=== PATIENT | male | born 1945 | race Caucasian/White ===

== ENCOUNTER 2018-04-03 01:55 | Outpatient (CLI) | payer OTHER, SELFPAY ==
[2018-04-03 09:00] LABS: D-Dimer 302 ng/mlFEU (<500)
== END 2018-04-03 02:15 ==
PROVIDERS: PCP Emergency Medicine; Visit Provider Emergency Medicine
DX: I26.99 Other pulmonary embolism without acute cor pulmonale (principal)
CPT/HCPCS: 36415; 85379

== ENCOUNTER 2018-05-09 15:06 | Outpatient (CLI) | payer OTHER, SELFPAY ==
[2018-05-09 15:59] LABS: HCT 41.2 % (40.0-50.0); Mean Corp. HGB Concentration 36.4 g/dL (32.0-36.0); Mean Corpuscular Hemoglobin 32.4 pg (27.0-33.0); Mean Platelet Volume 9.7 fL (8.0-11.0); Platelet Count 213 x1000/uL (130-400); RBC 4.63 m/cumm (4.50-6.00); RBC Distribution Width 11.5 % (11.8-14.1); White Blood Cell Count 7.31 k/cumm (4.4-10.8)
[2018-05-09 16:42] LABS: ALT 22 U/L (12-78); AST 26 U/L (15-37); Alkaline Phosphatase 85 U/L (46-116); Anion Gap 9.6 mmol/L (3-11); BUN 26 mg/dL (7-18); Bilirubin, Total 0.7 mg/dL (0.2-1.0); CO2 27.4 mmol/L (21.0-32.0); CREATININE 1.36 mg/dL (0.70-1.30); Chloride 100 mmol/L (98-107); Estimated GFR 51.81 (mL/min/1.73m2); Glucose 94 mg/dL (70-100); Lipase 224 U/L (73-393); Potassium 4.7 mmol/L (3.5-5.1); Sodium 137 mmol/L (136-145); Total Protein 7.1 g/dL (6.4-8.2)
== END 2018-05-09 15:26 ==
PROVIDERS: PCP Emergency Medicine; Visit Provider Family Medicine
DX: R10.9 Unspecified abdominal pain (principal); G89.29 Other chronic pain
CPT/HCPCS: 36415; 80053; 83690; 85027

== ENCOUNTER 2018-05-13 00:38 | Outpatient (CLI) | payer OTHER, SELFPAY ==
--- NOTE | 2018-05-13 10:00 | DI.US_ITS ---
SYMPTOM/DIAGNOSIS: LUQ PAIN, EPIGASTRIC PAIN R10.13, R10.9, G89.29 ABDOMEN ULTRASOUND: The liver is normal in size and echogenicity. No focal liver lesions or biliary dilatation is seen. The gallbladder is unremarkable, without evidence of stones or wall thickening. Bilateral renal cysts are noted. There is no evidence of hydronephrosis. There are questionable echogenic foci in the kidneys which could represent artifacts. The patient had a CT 03 August 2017 which did not reveal urinary tract calculi. The aorta is normal in diameter. IMPRESSION: Small renal cysts. No acute abnormality.
== END 2018-05-13 00:58 ==
PROVIDERS: PCP Emergency Medicine; Visit Provider Emergency Medicine
DX: R10.13 Epigastric pain (principal); R10.12 Left upper quadrant pain; N28.1 Cyst of kidney, acquired; G89.29 Other chronic pain
CPT/HCPCS: 76700

== ENCOUNTER 2019-03-11 00:52 | Outpatient (CLI) | payer OTHER, SELFPAY ==
--- NOTE | 2019-03-11 13:09 | DI.US_ITS ---
EXAM: US SCROTUM CLINICAL HISTORY: epydidimal pain, epididymal thickening, testicular pain, N50.819, N50.89 TECHNIQUE: Ultrasound performed using standard protocol. COMPARISON: No exams were available for comparison FINDINGS: Testicles are normal in size and echogenicity and show normal blood flow. There is no evidence of ma ss or torsion. There is a spermatocele adjacent to the left epididymal head measuring 2.7 x 1.3 x 1. 6 cm. There are small epididymal head cysts. There are minimal bilateral hydroceles. No varicocele s are seen. IMPRESSION: 2.7 centimeter spermatocele adjacent to the head of the left epididymis.
[2019-03-12 10:16] LABS: PSA, Screening 0.9 ng/mL (0.0-6.5)
== END 2019-03-11 01:12 ==
PROVIDERS: PCP Emergency Medicine; Visit Provider Nurse Practitioner
DX: N50.819 Testicular pain, unspecified (principal); N50.89 Other specified disorders of the male genital organs; N43.41 Spermatocele of epididymis, single; Z12.5 Encounter for screening for malignant neoplasm of prostate
CPT/HCPCS: 36415; 84153; 76870

== ENCOUNTER → 2019-11-07 10:46 | Outpatient (BNVA) | payer OTHER, SELFPAY | PROVIDERS: PCP Emergency Medicine; Referring Provider Emergency Medicine; Visit Provider Student in an Organized Health Care Education/Training Program | DX: M23.92 Unspecified internal derangement of left knee (principal) | CPT/HCPCS: 99214 ==

== ENCOUNTER → 2020-01-26 09:10 | Outpatient (BNVA) | payer OTHER, SELFPAY | PROVIDERS: PCP Emergency Medicine; Referring Provider Emergency Medicine; Visit Provider Student in an Organized Health Care Education/Training Program | DX: M23.92 Unspecified internal derangement of left knee (principal); Z98.890 Other specified postprocedural states | CPT/HCPCS: 99213 ==

== ENCOUNTER → 2020-10-07 08:26 | Outpatient (BNVA) | payer OTHER, SELFPAY | PROVIDERS: Visit Provider Student in an Organized Health Care Education/Training Program | DX: M23.92 Unspecified internal derangement of left knee (principal) | CPT/HCPCS: 99213 ==

== ENCOUNTER 2021-02-22 00:53 | Outpatient (CLI) | payer MEDICARE, SELFPAY ==
--- NOTE | 2021-02-22 06:30 | DI.MRI_ITS ---
Exam(s) MR LOWER JOINT LT WO EXAM: MR LOWER JOINT LT WO CLINICAL HISTORY: PAIN,INTERNAL DERANGEMENT LT KNEE, M23.92. TECHNIQUE: Multiplanar multisequence MRI was performed. COMPARISON: CR XR KNEE 4 VIEW LEFT from 04/17/2019 CR XR KNEE 4 VIEW LEFT from 04/17/2019 FINDINGS: BONES: There is no fracture or contusion pattern. Nonspecific patchy areas of hyperintense signal on the T2 weighted images corresponding to hypointense areas on the T1 weighted images. JOINTS: Articular cartilage is unremarkable. There is a small amount of fluid in the joint space. TENDONS: Extensor mechanism: Unremarkable. Medial retinaculum: Unremarkable. Lateral retinaculum: Unremarkable. Popliteus: Unremarkable. MUSCLES: Unremarkable. MENISCI: There is hyperintense signal in the posterior horn of the medial meniscus consistent with a tear. There is a tear of the body and posterior horn of the lateral meniscus. There is an associate d 1.2 x 0.8 cm parameniscal cyst. SOFT TISSUES: Unremarkable. LIGAMENTS: Anterior Cruciate: Unremarkable. Posterior Cruciate: Unremarkable. Medial Collateral:Unremarkable. Lateral Collateral: There is a strain of the lateral collateral ligament complex. OTHER: IMPRESSION: 1. Tear of the posterior horn of the medial meniscus. 2. Tear of the body and posterior horn of the lateral meniscus with an associated parameniscal cyst. 3. Strain of the lateral collateral ligament complex. 4. Mottled appearance of the marrow in the distal femur and proximal tibia and fibula. Differential considerations include both benign and malignant causes including neoplasm and metastatic disease. T his may also occur in smokers. Please correlate clinically. DATA REPOSITORY:
== END 2021-02-22 01:13 ==
PROVIDERS: Visit Provider Student in an Organized Health Care Education/Training Program
DX: M25.562 Pain in left knee (principal); M23.8X2 Other internal derangements of left knee; S83.242A Other tear of medial meniscus, current injury, left knee, initial encounter; S83.282A Other tear of lateral meniscus, current injury, left knee, initial encounter; S83.422A Sprain of lateral collateral ligament of left knee, initial encounter
CPT/HCPCS: 73721

== ENCOUNTER 2021-09-26 04:16 | Outpatient (CLI) | payer MEDICARE, SELFPAY ==
[2021-09-26 15:17] LABS: Calculated LDL 104 mg/dL (<100); Cholesterol 169 mg/dL (<200); HDL Cholesterol 43 mg/dL (40-60); Triglyceride 114 mg/dL (<150)
[2021-09-26 17:24] LABS: CRP, High Sensitivity 0.62 mg/L (See Note)
== END 2021-09-26 04:17 | disposition home or self-care (01) ==
LOC: LBO 04:16
PROVIDERS: PCP Family Medicine; Visit Provider Family Medicine
DX: R74.8 Abnormal levels of other serum enzymes (principal)
CPT/HCPCS: 36415; 80061; 86141

== ENCOUNTER 2021-11-14 21:28 | Emergency (ER) | payer MEDICARE, SELFPAY ==
[2021-11-14 21:33] VITALS: BP 112/59; PULSE 67; RESP 16; TEMP 36.8; O2SAT 97
--- NOTE | 2021-11-14 21:45 | DI.RAD_ITS ---
Exam(s) XR KNEE LT 3V AP,LAT,YESICA EXAM: XR KNEE LT 3V AP,LAT,YESICA CLINICAL HISTORY: puncture wound, fall on patella. TECHNIQUE: 2D digital imaging was performed of the left knee. Three images were obtained. AP, late ral and PA tunnel views were obtained. COMPARISON: No prior for comparison. FINDINGS: BONES: No acute fracture is present. No bony destructive lesion is seen. JOINTS: The knee is normally aligned. No joint effusion is seen. SOFT TISSUE: Soft tissue swelling is seen anterior to the patella. No radiopaque foreign bodies or g as is seen. IMPRESSION: 1. No radiopaque foreign body. 2. Soft tissue swelling anterior to the patella. DATA REPOSITORY: RADIATION DOSE DELIVERED:
--- NOTE | 2021-11-14 23:25 | DI.VRAD_ITS ---
PROCEDURE INFORMATION: Exam: XR Left Knee Exam date and time: 11/14/2021 9:55 PM Age: 76 years old Clinical indication: Other: Puncture wound, fall on patella TECHNIQUE: Imaging protocol: Radiologic exam of the Left knee. Views: 3 views. COMPARISON: MR LOWER JOINT LT WO 02/22/2021 7:50 AM FINDINGS: Bones/joints: No fracture or dislocation. Probable osteopenia. Soft tissues: Soft tissue swelling anterior to the inferior patella. No soft tissue gas or radiopaque foreign body. IMPRESSION: 1. No acute fracture. 2. Probable osteopenia. 3. Anterior knee soft tissue swelling/hematoma. Dictated and Authenticated by: Stephen Rausch MD. Ordering:FREEDOM Martinez MD
--- NOTE | 2021-11-14 23:40 | W.ED.GENAD ---
Discharge Plan Disposition Patient Disposition: HOME Condition: Stable Discharge Details Clinical Impression: Puncture wound of knee, left Primary Care Provider: Aiyana Joseph ED Provider: Michelle Fritz Home Meds and New Rx's Prescriptions: New cephalexin 500 mg tablet 500 mg PO Q6H Qty: 28 0RF Discharge Instructions Instructions: Puncture Wound (ED) Additional Instructions: Keep wound clean and dry Change dressing daily Refrain from bending knee is much as possible and elevate your knee is much as you are able to Take antibiotic as prescribed Yogurt daily while on antibiotic PCP recheck in 48 to 72 hours Referrals: Aiyana Joseph MD [Primary Care Provider] - Discharge Data Discharge Date/Time-TO BE ENTERED AT DEPARTURE: 11/15/21 00:16 Medical Decision Making X-ray does not show evidence of acute. Pressure dressing with Lane wrap was applied after copious irrigation Antibiotics recommended, however patient has declined and would like to observe it He is aware of the high risk of infection Precautions discussed and patient expressed understanding Medical Records Medical records reviewed: Yes I reviewed the patient's medical records. Lab Data Lab results reviewed: Yes I reviewed the patient's lab results. HPI General Date/Time Provider Initiated Documentation: 11/14/21 21:40. HPI Narrative: 76-year-old gentleman presents status post fall onto a rock. He landed onto the left knee and had a puncture wound. He denies any additional injuries. His tetanus is up-to-date reportedly. He has been able to walk without discomfort. Related Data Home Medications Medication Instructions Recorded Confirmed cephalexin 500 mg tablet 500 mg PO Q6H #28 tabs 11/14/21 Previous Rx's Medication Instructions Recorded cephalexin 500 mg tablet 500 mg PO Q6H #28 tabs 11/14/21 Allergies Allergy/AdvReac Type Severity Reaction Status Date / Time lidocaine AdvReac skin parker Unverified 11/14/21 21:37 with the lidocaine jel General Stated Complaint: Orthopedic WILLIE: 4 Review of Systems All systems reviewed & are unremarkable except as noted in HPI and below PFSH All Active Problems (Updated 11/14/21 @ 23:31 by MIS Ladd) Puncture wound of knee, left (Acute) Peyronie's disease (Chronic) Post-nasal drip (Chronic 11/09/16) 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) Cholelithiasis without obstruction Hx pulmonary embolism remote; post travel Low back pain scoliosis Pyloric ulcer associated with Helicobacter pylori (02/14/11) Varicose veins of lower extremity Surgical History (Updated 07/01/21 @ 08:49 by Aiyana Joseph MD) H/O left wrist surgery H/O rectal sphincterotomy History of esophagogastroduodenoscopy History of rectal sphincterotomy Status post arthroscopy of shoulder Status post rotator cuff repair Status post tonsillectomy and adenoidectomy Family History Mother Ovarian cancer Depression Heart disease Hypertension Stroke Father Heart disease Stroke Sister No problems noted. Maternal Grandfather Heart disease Social History (Updated 07/01/21 @ 08:43 by Aiyana Joseph MD) Smoking/Tobacco Use Status: Never Second Hand Exposure: No Smoking risk assessment performed?: Yes Alcohol Intake: never Drug use: Never Substance use type: does not use Caregiver/Support person: No Household members: spouse Housing: house Number of Children: 1 number of grandchildren: 2 Communication Needs: None Education Level: college Details: BS nursing current occupation: retired home health nurse Pets and animals: No Sexually active: No What is your relationship status?: How often do you talk on the phone with friends or family?: once per week How often do you get together with friends or relatives?: once per week How often do you attend tenriism or pentecostalism services?: decline to answer Do you belong to any clubs or organized social groups?: no Panel score (0-1 are the most socially isolated patients): 1 Duration: 60-90 minutes/day Frequency: daily Bebe/Hindu: No preference Special bebe needs: No Seatbelt use: always Helmet use: No Drive intox 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 Exam Const General: cooperative, comfortable and no acute distress HENMT Head: normal to inspection Eyes Sclera: sclerae normal Resp Effort & Inspection: normal respiratory effort Cardio Rate: regular rate Skin Trauma: laceration Neuro General: patient alert and patient oriented x3 Extrem Other: Left knee with puncture noted, approximately 5 mm overlying prepatellar bursa, traumatic bursitis Range of motion intact, no tenderness to left hip or left ankle, neurovascularly intact distal extremity Course Vital Signs Vital signs: Vital Signs Temperature 36.8 C 11/14/21 21:33 Pulse 67 11/14/21 21:33 Respiratory Rate 16 11/14/21 21:33 Blood Pressure 112/59 L 11/14/21 21:33 Pulse Oximetry 97 11/14/21 21:33 Temperature 36.8 C 11/14/21 21:33 Temperature Source Temporal Artery Scan 11/14/21 21:33 Pulse 67 11/14/21 21:33 Respiratory Rate 16 11/14/21 21:33 Respiratory Effort 11/14/21 21:33 Blood Pressure 112/59 L 11/14/21 21:33 Blood Pressure Position Sitting 11/14/21 21:33 Pulse Oximetry 97 11/14/21 21:33 Oxygen Delivery Method Room Air 11/14/21 21:33 Oxygen Flow Rate 0 11/14/21 21:33 Pain Level 4 11/14/21 21:33
== END 2021-11-15 00:16 | disposition home or self-care (01) ==
PROVIDERS: Emergency Provider Physician Assistant; PCP Family Medicine
DX: S81.032A Puncture wound without foreign body, left knee, initial encounter (principal); W18.39XA Other fall on same level, initial encounter
CPT/HCPCS: 73562; 99283

== ENCOUNTER 2023-05-08 12:35 | Outpatient (CLI) | payer MEDICARE, SELFPAY ==
[2023-05-08 13:28] LABS: Calculated LDL 107 mg/dL (<100); Cholesterol 200 mg/dL (<200); HDL Cholesterol 49 mg/dL (40-60); Triglyceride 223 mg/dL (<150)
== END 2023-05-08 12:36 | disposition home or self-care (01) ==
LOC: LBO 12:36
PROVIDERS: PCP Nurse Practitioner Family; Visit Provider Nurse Practitioner Family
DX: Z13.6 Encounter for screening for cardiovascular disorders (principal); Z12.5 Encounter for screening for malignant neoplasm of prostate
CPT/HCPCS: 36415; 80061; 84153

== ENCOUNTER → 2023-08-27 13:50 | Outpatient (CLI) | payer MEDICARE, SELFPAY ==
--- NOTE | 2023-08-27 11:45 | DI.CT_ITS ---
Exam(s) CT LOWER EXTREMITY LT WO EXAM: CT LOWER EXTREMITY LT WO CLINICAL HISTORY: S82.002A FX left Patella,presurgical eval of intra-articular, comminuted pa. TECHNIQUE: Imaging Protocol: Axial computed tomography images with coronal and sagittal reformatted images were created and reviewed. COMPARISON: CR,XR XR KNEE LT 3V AP,LAT,YESICA from 11/14/2021 FINDINGS: Bones: There is a comminuted fracture of the patella. There is distraction of the patella with 2 cm separation. There is a joint effusion. No cellulitic or osteomyelitic changes are identified. The re is no evidence of joint space narrowing or cystic degeneration seen. No lytic or sclerotic lesions are identified. Soft Tissues: There is edema seen in the soft tissues particularly anteriorly. There is a hematoma s een in the at the fracture site. Incidental note is made of a small popliteal cyst. IMPRESSION: Comminuted distracted patellar fracture with joint effusion and soft tissue hematoma. RADIATION DOSE DELIVERED: 252.31mGy.cm Total DLP 252.31mGy.cm Total DLP DATA REPOSITORY: All CT scans at this facility are submitted to the National Radiology Data Registry (NRDR) Dose Index Registry (DIR) with the [employer] (ACR). RADIATION OPTIMIZATION: All CT scans at this facility use at least one of these dose optimization te chniques: automated exposure control; mA and/or kV adjustment per patient size (includes targeted exa ms where dose is matched to clinical indication); or iterative reconstruction.
== END ==
PROVIDERS: PCP Nurse Practitioner Family; Visit Provider Student in an Organized Health Care Education/Training Program
DX: S82.042A Displaced comminuted fracture of left patella, initial encounter for closed fracture (principal); X58.XXXA Exposure to other specified factors, initial encounter
CPT/HCPCS: 73700

== ENCOUNTER 2023-08-29 10:13 | Day surgery (SDC) | payer MEDICARE, SELFPAY ==
[2023-08-29] VITALS (13 sets, daily range): BP systolic 99–138; BP diastolic 55–77; PULSE 56–73; RESP 12–20; TEMP 35–36.6; O2SAT 98–100
--- NOTE | 2023-08-29 10:05 | PDOC.DSDIS_ITS ---
Date of service: 08/29/23 Time of Service: 10:05 Discharge Plan Disposition Patient Disposition: Home Condition: Good Discharge Details Reason For Visit: ORIF L Patella Attending Provider: Jj Mccallum Primary Care Provider: Juan Carlos Ayon Home Meds and New Rx's Prescriptions: New acetaminophen 500 mg tablet 1,000 mg PO TID Qty: 90 3RF aspirin 81 mg tablet,delayed release (DR/EC) 81 mg PO BID Qty: 30 0RF ibuprofen 600 mg tablet 600 mg PO TID PRNQty: 90 3RF oxycodone 5 mg tablet 5 mg PO Q8H MDD 15mg PRN (Reason: pain) Qty: 10 0RF Continued mecobalamin (vitamin B12) 5,000 mcg tablet,chewable 5,000 mcg PO DAILY Qty: 90 3RF Discontinued aspirin 325 mg tablet 325 mg PO Q4H Rx Instructions: while awake Discharge Instructions Additional Instructions: Knee Manipulation Discharge Instructions Activity: You may bear weight as tolerated using crutches only with the brace on and the knee in full extension. You should apply ice to help with swelling and elevate when possible. Dressings: You should leave the dressing in place until your next visit in two weeks. Cover the dressing to keep it dry. You may shower after 72 hours although it would be recommend to sponge bath for the time being. You may relax or unstrap your knee immobilizer when the leg is supported. However, it should be fully secured before moving. You may apply the CryoCuff ice machine when resting but this should be removed and the immobilizer tightened prior to walking or moving. Do NOT try to move the knee too much until your next appointment. Medications: - You have been givin a stronger pain medicine oxycodone for severe pain to take as needed. - Recommend to take up to 1000mg of Acetaminophen (Tylenol) and 600mg of Ibuprofen (Advil) every 8 hours as needed. These larger strength tablets were called in but you also may use [id number]. Follow-up: 10 days Stand Alone Forms: Anesthesia Discharge Inst[facility] Herb Murray ([facility]) Referrals: Jj Mccallum MD [ [facility] STAFF PHYSICIAN] - 09/13/23 8:15 am Equipment/Supplies: Partial Weight Bearing Crutches Activity:: Elevate Remove Dressings/Wound Care:: Do Not Remove Shower/Bathe:: Cover Diet:: As Tolerated Discharge Orders Discharge Orders: Discharge Order (Routine); Ordered 08/29/23 Ordered By: William Hemphill DS: Diagnosis Discharge Diagnosis (1) Left patella fracture: Status: Acute
[2023-08-29 10:50] LABS: Source Nasal/Nares
[2023-08-29] MEDS: Acetaminophen 500 MG TAB 1000 MG PO (11:02)
[2023-08-29] MEDS: Celecoxib 200 MG CAP 400 MG PO (11:02)
[2023-08-29] MEDS: Lactated Ringers 1,000 ML 80 ML IV (11:17)
[2023-08-29 11:29] LABS: COVID-19 PCR Negative (Negative)
--- NOTE | 2023-08-29 11:32 | W.ANESPRE ---
General Info Date of Service Date Performed: 08/29/23 Height: 6 ft Weight: 67.1 kg Body Mass Index (BMI): 20.0 Surgical Procedure: Operation Date: 08/29/23 14:40 Proposed Procedure Side Surgeon p Knee ORIF Patella Left Jj Mccallum MD Meds Allergies and Home Medications Allergies Allergy/AdvReac Type Severity Reaction Status Date / Time lidocaine AdvReac skin parker Verified 08/29/23 11:18 with the lidocaine jel Home Medication Medication Instructions Recorded mecobalamin (vitamin B12) 5,000 5,000 mcg PO DAILY #90 tabs 04/18/23 mcg chewable tablet acetaminophen 500 mg tablet 1,000 mg (2 x 500 mg) PO TID #90 08/29/23 tabs aspirin 81 mg tablet,delayed 81 mg PO BID #30 tabs 08/29/23 release ibuprofen 600 mg tablet 600 mg PO TID PRN #90 tabs 08/29/23 oxycodone 5 mg tablet 5 mg PO Q8H PRN pain #10 tabs 08/29/23 Current Visit Medications: Current Medications Generic Name Dose Route Start Last Admin Trade Name Freq PRN Reason Stop Dose Admin Acetaminophen 1,000 mg 08/29/23 06:00 08/29/23 11:02 Acetaminophen 500 Mg Tab PO 09/27/23 23:59 1,000 mg PREOP KAR Administration Acetaminophen 650 mg 08/29/23 10:05 Acetaminophen 325 Mg Tab PO 09/28/23 10:04 Q4H PRN PRN Celecoxib 400 mg 08/29/23 06:00 08/29/23 11:02 Celecoxib 200 Mg Cap PO 09/27/23 23:59 400 mg PREOP KAR Administration Ringer's Solution 1,000 mls @ 80 mls/hr 08/29/23 06:00 08/29/23 11:17 IV 09/27/23 23:59 80 mls/hr INFUSION KAR Administration Cefazolin Sodium/Dextrose 2 gm in 50 mls @ 100 mls/hr 08/29/23 06:00 Ancef Duplex IVPB 09/27/23 23:59 PREOP KAR Tranexamic Acid/Sodium Chloride 1,000 mg in 100 mls @ 600 mls/hr 08/29/23 06:00 IVPB 09/27/23 23:59 PREOP KAR IV Miscellaneous Supplies 1 each 08/29/23 06:00 Iv Access IV 09/27/23 23:59 DIRECTED KAR Oxycodone HCl 0 mg 08/29/23 10:05 Oxycodone 5 Mg Tab PO 09/28/23 10:04 Q3H PRN PRN Pain Sodium Chloride 0 ml 08/29/23 06:00 Normal Saline Flush 10 Ml Syr IV 09/27/23 23:59 PRN PRN Sodium Chloride 0 ml 08/29/23 06:00 Normal Saline 10 Ml Vial IJ 09/27/23 23:59 DIRECTED PRN Sterile Water 0 ml 08/29/23 06:00 Water,Injection,Sterile 10 Ml Vial IJ 09/27/23 23:59 DIRECTED PRN PFSH Active Problems Active Problems: Problem Status Onset Code Left patella fracture S82.002A Skin lesion L98.9 Peyronie's disease N48.6 Post-nasal drip 11/09/16 R09.82 Disorder of vitamin B12 02/14/11 E53.8 Chronic abdominal pain R10.9, G89.29 Anxiety F41.9 Actinic keratosis L57.0 Medical History Medical History Hx pulmonary embolism remote; post travel 10years + Varicose veins of lower extremity Low back pain scoliosis Pyloric ulcer associated with Helicobacter pylori (02/14/11) Cholelithiasis without obstruction 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) Surgical History Surgical History H/O left wrist surgery H/O rectal sphincterotomy History of esophagogastroduodenoscopy History of rectal sphincterotomy Status post arthroscopy of shoulder Status post rotator cuff repair Status post tonsillectomy and adenoidectomy Tobacco Smoking/Tobacco Use Status: Never Passive smoking exposure: Yes Second hand exposure: Yes Alcohol Alcohol Intake: never Substance Use Substance use: Never Substance use type: does not use Vital Signs and Lab Results Vital Signs Most Recent Vital Signs in EMR: Most Recent Vital Signs Temp Pulse Resp BP Pulse Ox 36.6 C 73 18 131/72 100 08/29/23 10:41 08/29/23 10:41 08/29/23 10:41 08/29/23 10:41 08/29/23 10:41 Lab Results Blood Type / Crossmatch: No Data to Display Complete Blood Count: No Data to Display Complete Metabolic Panel: No Data to Display Liver Function Panel: No Data to Display Coagulation Panel: No Data to Display Cardiac Panel: No Data to Display Arterial Blood Gas: No Data to Display Venous Blood Gas: No Data to Display Pancreas Panel: No Data to Display Thyroid Panel: No Data to Display Infectious Disease: Coronavirus (COVID-19)(PCR) Negative (Negative) 08/29/23 10:47 Coronavirus 2019 Source Nasal/Nares 08/29/23 10:47 Blood Cultures: No Data to Display Toxicology Panel: No Data to Display Anesthesia Assessment and Plan Anesthesia History Personal History: No History of Anesthesia Complications Family History: No Family History of Anesthesia Complications Exercise Tolerance Exercise Tolerance: Metabolic Equivalents>4 Cardiac & Pulmonary Exam Cardiac Exam: Normal S1/S2 Heart Sounds Pulmonary Exam: Clear Bilateral Breath Sounds Implantable Cardiac Device Does patient have a Pacemaker or an ICD?: No Airway Exam Known Difficult Airway: No Mallampati Class: 3 Mouth Opening: Normal (> 3cm) Thyromental Distance: Less than 3 cm Neck Range of Motion: Full ROM Neck Circumference: Normal Teeth Condition: Normal Dentition ASA Classification ASA Score: ASA 2 Emergency Case?: No NPO Status NPO Status: NPO Clears >2 hours, Solids >8 hours Anesthesia Plan Resuscitation Status: Full Code Anesthesia Technique: Spinal Anesthesia Airway Planned: Natural Airway Pain Management: Surgeon and patient request nerve block (rescue) Monitors Used: Standard Monitors Preoperative Comments:: 78 yo male for Patella ORIF. Sig PMHx: PE/DVT (not on anticoagulation, not recently), anxiety, never smoker. Discussed risk/benifits of spinal vs general. Would like primary spinal with light propofol sedation. We discussed that conversion to GA may be needed if the surgery takes longer than expected. Rescue nerve block was also discussed. He had a recent stuffy nose, however he feels that his symptoms resolved and in my time speaking with them he did not demonstrate any signs or URI.
--- NOTE | 2023-08-29 12:20 | HPE_ITS ---
Assessment and Plan Assessment and plan (1) Left patella fracture: Status: Acute Assessment and plan: Chris is a 78-year-old active male who suffered a comminuted displaced patella fracture in the left side. Given the displaced nature of the fracture recommended operative fixation. It is imperative that we get the bone back together to heal to restore his extensor mechanism. I discussed the methodical details of this case, particularly surrounding the amount of comminution present. I discussed the risk of the procedure to include bleeding, infection, pain, stiffness, damage to nerves and vessels, damage to muscle and tendons, malunion, nonunion, hardware prominence, hardware failure, need for repeat procedures, worsening arthritis, blood clot. Despite these risk, he elects to proceed. History of Present Illness Narrative: Chris is a 78-year-old active male who had seen previously for his left knee who was hiking in [facility] when he fell directly on the left knee. He was diagnosed with a comminuted and displaced patella fracture. He is placed into a long-leg splint. He contacted me from [facility] with pictures of the fracture. This prompted the urgent evaluation with CT scan and surgery today. He has been able to ambulate with the splint in full extension. He has been using the crutches. He denies any defect in the skin. He denies any numbness or tingling. He does report not feeling well having a low-grade cough since he is returned from traveling. He had no other changes to his medical history. 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 Maternal Grandfather Heart disease Social History Smoking/Tobacco Use Status: Never Second Hand Exposure: Yes Smoking risk assessment performed?: Yes Alcohol Intake: never Drug use: Never Substance use type: does not use Adopted: No Caregiver/Support person: No Foster care: No Household members: spouse Housing: house Number of Children: 1 number of grandchildren: 2 Communication Needs: None Education Level: college Details: BS nursing Do you need help understanding health information?: Never current occupation: retired home health nurse Pets and animals: No Sexually active: No Do you think of yourself as: straight/heterosexual Current gender identity: male What is your relationship status?: How often do you talk on the phone with friends or family?: decline to answer How often do you get together with friends or relatives?: decline to answer How often do you attend roman catholic or christian services?: decline to answer Do you belong to any clubs or organized social groups?: no Panel score (0-1 are the most socially isolated patients): 1 What type of physical activity do you participate in: walking and other Details: rec fit Duration: > 90 minutes/day Frequency: daily Bebe/Yarsanism: None Special bebe needs: No Agree to transfusion: Yes Seatbelt use: always Helmet use: Yes Helmet use: always Drive intox or ride w/intox river driver: No Working smoke detector in home: Yes Carbon monox detector in home: Yes Firearms in home: No Do you feel safe at home: Yes Do you feel safe in your relationship?: Yes Victim of physical abuse: No Victim of emotional abuse: No Victim of sexual abuse: No Would you like helpful sources: No Meds Allergies and Home Medications Allergies Allergy/AdvReac Type Severity Reaction Status Date / Time lidocaine AdvReac skin parker Verified 08/29/23 11:18 with the lidocaine jel Home Medications Medication Instructions Recorded Confirmed Type mecobalamin (vitamin B12) 5,000 5,000 mcg PO DAILY #90 tabs 04/18/23 08/29/23 Rx mcg chewable tablet acetaminophen 500 mg tablet 1,000 mg (2 x 500 mg) PO TID #90 08/29/23 Rx tabs aspirin 81 mg tablet,delayed 81 mg PO BID #30 tabs 08/29/23 Rx release ibuprofen 600 mg tablet 600 mg PO TID PRN #90 tabs 08/29/23 Rx oxycodone 5 mg tablet 5 mg PO Q8H PRN pain #10 tabs 08/29/23 Rx Exam Const General: cooperative, healthy appearing, comfortable and no acute distress Nutritional Appearance: average body habitus Resp Effort & Inspection: normal respiratory effort Auscultation: clear to auscultation bilaterally Cardio Rate: regular rate Rhythm: regular rhythm Extrem Other: Evaluation of the left leg shows it is placed into a long-leg splint. He has active ankle dorsiflexion and plantarflexion as well as great toe extension and flexion. Sensation intact light touch over the deep and superficial peroneal nerve and tibial nerve. Results Imaging Imaging Studies: X-ray of the left patella was reviewed from the online portal system. These were from [facility]. This shows a displaced and comminuted fracture of the left patella. CT scan of the left patella shows multiple fragments of the patella including articular surface with notable comminution and displacement the fracture fragments. No apparent fracture of the femur or the tibia Labs Labs: Laboratory Results - last 24 hr 08/29/23 10:47 COVID-19 Source Nasal/Nares SARS-CoV-2 (PCR) Negative Last Vital Signs Temp 36.6 C 08/29/23 10:41 Pulse 73 08/29/23 10:41 Resp 18 08/29/23 10:41 BP 131/72 08/29/23 10:41 Pulse Ox 100 08/29/23 10:41
--- NOTE | 2023-08-29 12:45 | DI.RAD_ITS ---
Exam(s) XR KNEE LT 1V EXAM: XR KNEE LT 1V CLINICAL HISTORY: LEFT PATELLA FRACTURE. TECHNIQUE: 2D digital imaging was performed. COMPARISON: No exams were available for comparison FINDINGS: Fluoroscopy provided during ORIF of left patellar fracture. See procedure report for details. Total fluoroscopy time 34 seconds IMPRESSION: Radiation exposure index/cumulative dose: mary carmen Quesada= 2.6296 mGy DATA REPOSITORY: RADIATION DOSE DELIVERED:
[2023-08-29] MEDS: ceFAZolin 2 GM/50 ML BAG IVPB (14:20)
[2023-08-29] MEDS: TRANEXAMIC ACID/SOD. CHL. 1,000 MG/100 ML BAG 600 MG IVPB (14:29)
--- NOTE | 2023-08-29 17:40 | ROE_ITS ---
Date of service: 08/29/23 Time of Service: 14:30 Operative Note Operative Note DATE OF PROCEDURE: 08/29/23 PRE-OP DIAGNOSIS: Comminuted Patella Fracture - LEFT POST-OP DIAGNOSIS: same PROCEDURE: Open Reduction and Internal Fixation of Left Patella Fracture SURGEON: Jj Mccallum DYNAM[employer] AX TECHNICAL ARCHITECT: William Hemphill ANESTHESIA TYPE: General LMA/ETT and Spinal Refer to Anesthesia Record ESTIMATED BLOOD LOSS: 50 PATHOLOGY: none sent TOURNIQUET TIME: 0 COMPLICATIONS: None Patient was transported to: PACU Patient's condition: stable Implants: Synthes 2.7mm VA Patella Plate - Large Indications: Chris is a 78 year old male who was hiking in [facility] when he fell onto a flexed left knee. He is unable to ambulate properly a comminuted and displaced patella fracture. He contacted me from [facility] where I arranged further imaging on his arrival. However, the x-rays were clear he had displaced talus fracture. This was confirmed with CT scan which shows significant comminution. Given this fracture, I recommended operative fixation. I reviewed the risks of the procedure to include bleeding, infection, pain, stiffness, patellar instability, malunion, nonunion, fracture, clot, worsening arthritis. Despite these risks, Chris elected to proceed. Findings: There was a highly comminuted fracture of the patella. Individual fracture fragments were secured with K wires and 2.4 millimeter screws. A dorsal variable angle 2.7 mm plate was applied to obtain more complete fixation. This was also backed up by suture techniques around the patella. Procedure Description: Chris was greeted in the preoperative holding area where the correct side was identified and marked. The consent was reviewed with the patient and signed. The history and physical was updated. All questions were answered. Preoperative mediacations were administered: Acetaminophen 1000mg, Celebrex 400mg, and Gabapentin 300mg. An adductor canal block was then administered by the anesthesia team. Chris was taken back to the operating room. A spinal anesthestic was then administered. The patient was placed into the supine position on the operating room table on a bone foam ramp. All bony prominences were well padded. Prophylactic antibiotics in the form of Cefazolin were administered. 1g of Tranxemic Acid was given intravenously within 30 minutes of incision. The left leg was then prepped with Chloraprep and draped in a standard fashion with impervious stockinette and extremity drape. A second prep with Chloraprep was performed prior to placing Ioband. A timeout to confirm correct identity, side and site, procedure, allergies, anesthesia, and medical concerns was performed. With the knee in some flexion, a midline incision was made overlying the knee. Unfortunately, at this moment very seem to be reacting to some of what we are doing. Therefore, he was converted to a general anesthetic. Full thickness skin flaps were raised once the extensor mechanism was encountered and there was an immediate trevizo of significant hematoma from in the soft tissues and from within the defect of the patella. Fracture hematoma and early fibrinous material was debrided with a curette, rongeur and irrigation. There was some avulsion of the vastus lateralis insertion over the proximal?lateral aspect patella. There is a small defect in the medial retinaculum. This medial retinacular defect and the lateral defect were extended slightly for better visualization of the fracture fragments. Peritenon was elevated off of the underlying patellar ligament and the dorsal aspect of the patella, the use later in the case. Tendon material was resected from the bony edges to evaluate reduction. There are multiple fracture fragments. Using a CT scan to guide along with direct visualization and began proximally. The proximal fragment, although there were a few fracture plane seen on CT scan, was not grossly unstable. To secure some of these splits which were seen initially I placed a 2.4 millimeter screw from lateral to medial. This had excellent purchase and secured any fracture lines in this proximal segment. The shell of bone avulsed off with the vastus lateralis was left separate with the soft tissue attached. Attention was then turned to the distal segment. This had at least 3 separate pieces. I utilized 2 K wires along with another interfragmentary screw to help secure these pieces. They were very challenging to hold given the comminution and some of the core bone from the fractures. I was only a 1 compression screw across the medial section. However, K wires were used for the other sections. Thorough irrigation was once again performed. The joint was irrigated completely. Direct reduction was then performed. Direct visual inspection along with manual palpation confirmed appropriate reduction. This was held with K wire and compressive clamps. X-ray was performed which showed appropriate reduction. I then used the template from the patella plate system. I used this to help size and guide placement. A large Synthes 2.7 mm DA patella plate was then opened. Based on the template I then removed the distal screw hole from to the arms. This was cut flush and filed down for smoothness. I then placed a plate over the dorsal surface of the patella. The central arm of the distal aspect the plate was curved down approximately 90 degrees. A split was made in the patellar ligament at its insertion to the inferior pole. The plate was applied over the patella and this time was inserted against the inferior pole through the patellar ligament. With the plate held in position with a K wire and direct manipulation, I advanced a drill 2.7 millimeter screw system through this hole and through the superior cortex of the patella. A 2.7 millimeter screw was placed. There is a cortical screw which had excellent fixation into the cortex and actually showed some compression with advancement of the screw. Fluoroscopy was utilized to confirm appropriate position. The plate was secured to the patella with two 2.7 mm locking screws. I then worked around the plate contouring it to the shape of the patella, making small splits in the surrounding tissues and bending the plate times to sit into the tissues against the perimeter of the patella. Several 2.7 mm locking screws were placed around the patella to secure the various fragments. All K wires were removed. Final x-rays were obtained. This showed reduction of the patella with near-anatomic alignment radiographically. There is an thoroughly irrigated once again. The defect in the retinaculum and the avulsion of the vastus lateralis was repaired with a #1 Vicryl. The sutures were placed under the arms of the plate and through the soft tissues. Additionally, I placed an advancement suture in the distal quadriceps which is tied to the dorsal tissues of the patella and around the arm of the plate to secure the quadriceps and the tension is inserti on. Using a fiber tape suture a pursestring type suture was placed around the periphery of the patella. Once this was fully placed it was tied and the knot was buried. The knee tissues were then injected with a mixture of 0.25% ropivacaine, epinephrine, clonidine, and ketorolac. The peritenon was closed overlying the patellar tendon and the distal half of the plate using a #2-0 Vicryl. Further areas of peritenon and fascia tissue was reapproximated over the plate where I could using a #2-0 Vicryl. Deep tissues were then reapproximated with 0 Vicryl and 2-0 Vicryl. The skin was closed with a running 3-0 Monocryl in a subcuticular fashion. This was reinforced with skin glue. A Mepilex silver dressing was applied along with a [id number] JUNITO wrap. A CryoCuff was applied along with a knee immobilizer. Chris was transferred to the hospital bed without difficulty an suffering no apparent complication. Chris has a good prognosis. He will remain weightbearing as tolerated with the knee immobilizer in place. Aspirin 81mg BID will be used for DVT prophylaxis.
[2023-08-29] MEDS: fentaNYL 100 MCG/2 ML VIAL IVP (18:04)
[2023-08-29] MEDS: oxyCODONE 5 MG TAB PO (18:44)
[2023-08-29] MEDS: Acetaminophen 325 MG TAB 650 MG PO (18:45)
--- NOTE | 2023-08-29 21:09 | W.ANESPOSTOP ---
Postoperative Evaluation Date, Time and Location Date Performed: 08/29/23 Time Performed: 17:40 Patient Location: PACU Vital Signs Most Recent Imported Vital Signs: Most Recent Vital Signs Temp Pulse Resp BP Pulse Ox 36.5 C 56 L 20 106/76 100 08/29/23 19:26 08/29/23 20:30 08/29/23 20:30 08/29/23 20:30 08/29/23 20:30 Pain Score Most Recent Pain Score: Most Recent Pain Score Pain Level 4 08/29/23 18:45 Assessment Mental Status: Awake (Alert & Oriented to Patient Baseline) Airway and Respiratory Function: Patent airway with normal (patient baseline) respiratory exam Cardiovascular Function: Hemodynamically Stable Hydration Status: Adequately Hydrated Nausea & Vomiting: No Nausea or Vomiting Pain: Pain is tolerable per patient Peripheral Nerve Block: Patient did not receive a nerve block
== END 2023-08-29 20:48 | disposition home or self-care (01) ==
LOC: SUR 10:14 → MS 18:29
PROVIDERS: Student in an Organized Health Care Education/Training Program; PCP Nurse Practitioner Family; Visit Provider Student in an Organized Health Care Education/Training Program
PROC: (CPT 27524; principal; 2023-08-29 14:30)
DX: S82.002A Unspecified fracture of left patella, initial encounter for closed fracture (principal); W19.XXXA Unspecified fall, initial encounter
CPT/HCPCS: 27524; 76000; 87635; 73560; J0690; J1100; J2250; J2371; J2401; J2405; J2704; J3010

== ENCOUNTER → 2023-09-13 02:09 | Outpatient (CLI) | payer MEDICARE, SELFPAY ==
--- NOTE | 2023-09-13 09:40 | DI.RAD_ITS ---
Exam(s) XR CHEST 2V PA LATERAL EXAM: XR CHEST 2V PA LATERAL CLINICAL HISTORY: Hx PEs, similar symptoms, COUGH, R05.9 TECHNIQUE: 2D digital imaging was performed of the chest. Two images were obtained. PA and lateral views were obtained. COMPARISON: CR CHEST 2 VIEWS PA,LAT from 06/10/2014 FINDINGS: MEDIASTINUM: Normal. HEART: Normal. PULMONARY VASCULATURE: Normal. LUNGS: The lungs are hyperinflated with flattened diaphragms suggesting underlying COPD. No focal co nsolidating infiltrates are present. PLEURAL SPACE: No pleural effusion or pneumothorax. BONE:Within normal limits for the patient's age. There is now mild compression of the L1 vertebral b ml. This is of indeterminate age. OTHER FINDINGS:Normal. IMPRESSION: 1. No acute pulmonary findings. 2. Hyperinflated lungs suggesting underlying COPD. 3. Mild L1 compression deformity of indeterminate age. Follow-up as clinically appropriate. DATA REPOSITORY: RADIATION DOSE DELIVERED:
== END ==
PROVIDERS: PCP Nurse Practitioner Family; Visit Provider Nurse Practitioner Family
DX: R05.9 Cough, unspecified (principal)
CPT/HCPCS: 71046

== ENCOUNTER 2023-09-13 14:35 | Outpatient (CLI) | payer MEDICARE, SELFPAY ==
--- NOTE | 2023-09-13 08:00 | DI.RAD_ITS ---
Exam(s) XR KNEE LT 2V AP,LAT EXAM: XR KNEE LT 2V AP,LAT CLINICAL HISTORY: L patella fx. TECHNIQUE: 2D digital imaging was performed of the left knee. Two images were obtained. AP and lat eral views were obtained. COMPARISON: CT CT LOWER EXTREMITY LT WO from 08/27/2023 XA XR KNEE LT 1V from 08/29/2023 FINDINGS: BONES: There again seen postsurgical changes of internal fixation of the comminuted patellar fractur e. No new fracture is identified. No bony destructive lesion is seen. JOINTS: The knee is normally aligned. There is a small joint effusion. No loose body. SOFT TISSUE: Normal. IMPRESSION: Status post internal fixation of the comminuted left patellar fracture. DATA REPOSITORY: RADIATION DOSE DELIVERED:
== END 2023-09-13 14:36 | disposition home or self-care (01) ==
LOC: DIORS 14:35
PROVIDERS: PCP Nurse Practitioner Family; Visit Provider Physician Assistant
DX: S82.002A Unspecified fracture of left patella, initial encounter for closed fracture (principal); X58.XXXA Exposure to other specified factors, initial encounter
CPT/HCPCS: 73560

== ENCOUNTER → 2023-09-27 10:16 | Outpatient (BNVA) | payer MEDICARE, SELFPAY | PROVIDERS: PCP Nurse Practitioner Family; Referring Provider Nurse Practitioner Family | DX: S82.002D Unspecified fracture of left patella, subsequent encounter for closed fracture with routine healing (principal); X58.XXXD Exposure to other specified factors, subsequent encounter ==

== ENCOUNTER → 2023-10-02 10:48 | Outpatient (BNVA) | payer MEDICARE, SELFPAY | PROVIDERS: PCP Nurse Practitioner Family; Referring Provider Nurse Practitioner Family; Visit Provider Physical Therapy Assistant | DX: L76.82 Other postprocedural complications of skin and subcutaneous tissue (principal); S82.002D Unspecified fracture of left patella, subsequent encounter for closed fracture with routine healing; X58.XXXD Exposure to other specified factors, subsequent encounter | CPT/HCPCS: 99214 ==

== ENCOUNTER → 2023-10-09 10:48 | Outpatient (BNVA) | payer MEDICARE, SELFPAY | PROVIDERS: PCP Nurse Practitioner Family; Visit Provider Physical Therapy Assistant | DX: Z51.89 Encounter for other specified aftercare (principal); L76.82 Other postprocedural complications of skin and subcutaneous tissue | CPT/HCPCS: 99213 ==

== ENCOUNTER 2023-10-11 11:06 | Outpatient (CLI) | payer MEDICARE, SELFPAY ==
--- NOTE | 2023-10-11 08:45 | DI.RAD_ITS ---
Exam(s) XR KNEE LT 2V AP,LAT EXAM: XR KNEE LT 2V AP,LAT CLINICAL HISTORY: L patella fx. TECHNIQUE: 2D digital imaging was performed of the left knee. Two images were obtained. AP and lat eral views were obtained. COMPARISON: CR XR KNEE LT 2V AP,LAT from 09/13/2023 CR XR CHEST 2V PA LATERAL from 09/13/2023 FINDINGS: BONES: There is again seen internal fixation of the patellar fracture. The orthopedic hardware appe ars stable in alignment. The fracture line is still partially visualized. No new fracture is seen. No bony destructive lesion is seen. JOINTS: The knee is normally aligned. There is a small joint effusion. No loose body. SOFT TISSUE: Persistent soft tissue swelling anterior to the patella is noted. IMPRESSION: Stable patellar fracture. DATA REPOSITORY: RADIATION DOSE DELIVERED:
== END 2023-10-11 11:07 | disposition home or self-care (01) ==
LOC: DIORS 11:06
PROVIDERS: PCP Nurse Practitioner Family; Visit Provider Student in an Organized Health Care Education/Training Program
DX: S82.002D Unspecified fracture of left patella, subsequent encounter for closed fracture with routine healing (principal); X58.XXXD Exposure to other specified factors, subsequent encounter
CPT/HCPCS: 73560

== ENCOUNTER → 2023-10-16 09:28 | Outpatient (BNVA) | payer MEDICARE, SELFPAY | PROVIDERS: PCP Nurse Practitioner Family; Referring Provider Nurse Practitioner Family; Visit Provider Physical Therapy Assistant | DX: S82.002D Unspecified fracture of left patella, subsequent encounter for closed fracture with routine healing (principal); X58.XXXD Exposure to other specified factors, subsequent encounter | CPT/HCPCS: 99213 ==

== ENCOUNTER → 2023-11-01 14:26 | Outpatient (BNVA) | payer MEDICARE, SELFPAY | PROVIDERS: PCP Nurse Practitioner Family; Visit Provider Physical Therapy Assistant | DX: S82.002D Unspecified fracture of left patella, subsequent encounter for closed fracture with routine healing (principal); X58.XXXD Exposure to other specified factors, subsequent encounter | CPT/HCPCS: 99213 ==

== ENCOUNTER 2023-11-29 16:02 | Outpatient (CLI) | payer MEDICARE, SELFPAY ==
--- NOTE | 2023-11-29 14:06 | DI.RAD_ITS ---
Exam(s) XR KNEE LT 2V AP,LAT EXAM: XR KNEE LT 2V AP,LAT CLINICAL HISTORY: f/u L patella fractrure. TECHNIQUE: 2D digital imaging was performed of the left knee. Two images were obtained. AP and lat eral views were obtained. COMPARISON: CR XR KNEE LT 2V AP,LAT from 10/11/2023 FINDINGS: BONES: There is a stable alignment of the patellar fracture and orthopedic hardware. No new fractur es identified. No bony destructive lesion is seen. JOINTS: The knee is normally aligned. No joint effusion is seen. No loose body. SOFT TISSUE: There is again seen soft tissue swelling in the suprapatellar region. IMPRESSION: Stable alignment of the patellar fracture. DATA REPOSITORY: RADIATION DOSE DELIVERED:
== END 2023-11-29 16:03 | disposition home or self-care (01) ==
LOC: DIORS 16:02
PROVIDERS: PCP Nurse Practitioner Family
DX: S82.002D Unspecified fracture of left patella, subsequent encounter for closed fracture with routine healing (principal); X58.XXXD Exposure to other specified factors, subsequent encounter
CPT/HCPCS: 73560

== ENCOUNTER → 2023-12-06 11:04 | Outpatient (BNVA) | payer MEDICARE, SELFPAY | PROVIDERS: PCP Nurse Practitioner Family; Visit Provider Physical Therapy Assistant | DX: S82.002D Unspecified fracture of left patella, subsequent encounter for closed fracture with routine healing (principal); X58.XXXD Exposure to other specified factors, subsequent encounter | CPT/HCPCS: 99213 ==

== ENCOUNTER → 2024-01-10 13:37 | Outpatient (BNVA) | payer MEDICARE, SELFPAY | PROVIDERS: PCP Nurse Practitioner Family; Referring Provider Nurse Practitioner Family | DX: S82.002D Unspecified fracture of left patella, subsequent encounter for closed fracture with routine healing (principal); X58.XXXD Exposure to other specified factors, subsequent encounter | CPT/HCPCS: 99213 ==

== ENCOUNTER 2024-02-01 13:12 | Outpatient (CLI) | payer MEDICARE, SELFPAY ==
[2024-02-01 11:28] LABS: Abs Immature Grans 0.02 10^3/uL (0.0-0.06); Absolute Basophil Count 0.07 10^3/uL (0.0-0.2); Absolute Eosinophil Count 0.29 10^3/uL (0.0-0.7); Absolute Lymphocyte Count 1.57 10^3/uL (1.2-3.4); Absolute Monocyte Count 0.63 10^3/uL (0.1-0.8); Absolute Neutrophil Count 4.53 10^3/uL (1.2-6.7); Eosinophils % 4.1 %; HGB 13.3 g/dL (13.5-17.5); Immature Grans % 0.3 %; Lymphocytes % 22.1 %; MCH 30.9 pg (27.0-33.0); MCHC 33.3 % (32.0-36.0); MCV 93 fL (80-95); MPV 9.5 fL (8.0-11.0); Monocytes % 8.9 %; Neutrophils % 63.6 %; Platelet Count 219 10^3/uL (130-400); RDW 12.6 % (11.8-14.1); RDW-SD 43.3 fL; WBC 7.11 10^3/uL (4.4-10.8)
[2024-02-01 12:22] LABS: ALT 16 U/L (16-63); AST 16 U/L (15-37); Albumin 3.5 g/dL (3.4-5.0); Alkaline Phosphatase 93 U/L (46-116); Anion Gap 8.3 mmol/L (3-11); BUN 23 mg/dL (7-18); Bilirubin, Total 0.43 mg/dL (0.2-1.0); CO2 27.7 mmol/L (21.0-32.0); CREATININE 1.4 mg/dL (0.70-1.30); Calcium 9.6 mg/dL (8.5-10.1); Calculated LDL 120 mg/dL (<100); Chloride 107 mmol/L (98-107); Cholesterol 188 mg/dL (<200); Estimated GFR 52.09 (mL/min/1.73m2); Glucose 88 mg/dL (74-106); HDL Cholesterol 44 mg/dL (40-60); Potassium 4.3 mmol/L (3.5-5.1); Sodium 143 mmol/L (136-145); Total Protein 6.7 g/dL (6.4-8.2); Triglyceride 120 mg/dL (<150); Vitamin B12 1389 pg/mL (193-986)
== END 2024-02-01 13:13 | disposition home or self-care (01) ==
LOC: LBO 13:14
PROVIDERS: PCP Nurse Practitioner Family; Visit Provider Family Medicine
DX: E78.5 Hyperlipidemia, unspecified (principal); S32.010A Wedge compression fracture of first lumbar vertebra, initial encounter for closed fracture; E53.9 Vitamin B deficiency, unspecified; Z78.9 Other specified health status
CPT/HCPCS: 36415; 80053; 80061; 82306; 82607; 85025

== ENCOUNTER 2024-02-07 09:09 | Outpatient (CLI) | payer MEDICARE, SELFPAY ==
--- NOTE | 2024-02-07 08:15 | DI.RAD_ITS ---
Exam(s) XR KNEE LT 4V AP,LAT,YESICA,PAT EXAM: XR KNEE LT 4V AP,LAT,YESICA,PAT CLINICAL HISTORY: LEFT KNEE PAIN. TECHNIQUE: 2D digital imaging was performed. COMPARISON: CR XR KNEE LT 2V AP,LAT from 09/13/2023 CR XR KNEE LT 2V AP,LAT from 11/29/2023 FINDINGS: Four views: Appearance of the patellar hardware appears stable. Stable alignment. No new fractures evident. No radiographic evidence of osteomyelitis. Significant narrowing of the medial lateral compartments. No prominent joint effusion. IMPRESSION: Stable appearance DATA REPOSITORY: RADIATION DOSE DELIVERED:
== END 2024-02-07 09:10 | disposition home or self-care (01) ==
LOC: DIORS 09:09
PROVIDERS: PCP Nurse Practitioner Family; Referring Provider Nurse Practitioner Family; Visit Provider Student in an Organized Health Care Education/Training Program
DX: S82.042D Displaced comminuted fracture of left patella, subsequent encounter for closed fracture with routine healing; X58.XXXD Exposure to other specified factors, subsequent encounter; M23.92 Unspecified internal derangement of left knee
CPT/HCPCS: 20610; J1010; 73564

== ENCOUNTER → 2024-11-27 10:16 | Outpatient (BNVA) | payer MEDICARE, SELFPAY | PROVIDERS: PCP Nurse Practitioner Family; Referring Provider Nurse Practitioner Family; Visit Provider Student in an Organized Health Care Education/Training Program | DX: S82.042D Displaced comminuted fracture of left patella, subsequent encounter for closed fracture with routine healing (principal); Z87.81 Personal history of (healed) traumatic fracture; M25.662 Stiffness of left knee, not elsewhere classified; M25.562 Pain in left knee; X58.XXXD Exposure to other specified factors, subsequent encounter; Z79.01 Long term (current) use of anticoagulants | CPT/HCPCS: 99214 ==

== ENCOUNTER 2024-12-11 03:02 | Outpatient (CLI) | payer MEDICARE, SELFPAY ==
--- NOTE | 2024-12-11 08:10 | DI.CT_ITS ---
Exam(s) CT LOWER EXTREMITY LT WO EXAM: CT LOWER EXTREMITY LT WO CLINICAL HISTORY: LEFT KNEE PAIN,lt patellar fx,s/p orif,s82.042a,z98.890,z87.81. TECHNIQUE: Imaging Protocol: Axial computed tomography images with coronal and sagittal reformatted images were created and reviewed. COMPARISON: CT CT LOWER EXTREMITY LT WO from 08/27/2023 CR XR KNEE LT 4V AP,LAT,YESICA,PAT from 02/07/2024 FINDINGS: Bones: There are orthopedic screws in sideplate transfixing the patellar fracture. This does cause some artifact. The patella appears to be healed. No new fracture is identified. There are mild degenerative changes seen at the posterior patella with osteophytes present. The bones appear mildly osteopenic. There is a small joint effusion present. No lytic or sclerotic lesions are identified. Soft Tissues: There is a popliteal cyst present measuring 5.4 cm in length. There is mild edema seen in the soft tissues anterior to the knee but no focal fluid collection is seen. IMPRESSION: 1. Postsurgical changes of internal fixation of an old patellar fracture. The fracture appears healed. 2. No acute fracture or dislocation is seen. 3. Small joint effusion 4. 5.4 cm popliteal cyst. 5. Mild degenerative changes at the patellofemoral joint. RADIATION DOSE DELIVERED: 121.39mGy.cm Total DLP 121.39mGy.cm Total DLP DATA REPOSITORY: All CT scans at this facility are submitted to the National Radiology Data Registry (NRDR) Dose Index Registry (DIR) with the [employer] (A[employer]). RADIATION OPTIMIZATION: All CT scans at this facility use at least one of these dose optimization techniques: automated exposure control; mA and/or kV adjustment per patient size (includes targeted exams where dose is matched to clinical indication); or iterative reconstruction.
== END 2024-12-11 03:22 ==
PROVIDERS: PCP Nurse Practitioner Family; Visit Provider Student in an Organized Health Care Education/Training Program
DX: S82.042A Displaced comminuted fracture of left patella, initial encounter for closed fracture (principal); Z98.890 Other specified postprocedural states; Z87.81 Personal history of (healed) traumatic fracture; X58.XXXA Exposure to other specified factors, initial encounter
CPT/HCPCS: 73700

== ENCOUNTER 2025-02-04 11:53 | Day surgery (SDC) | payer MEDICARE, SELFPAY ==
[2025-02-04 12:15] VITALS: BP 121/62; PULSE 62; RESP 16; TEMP 36.4; O2SAT 99
[2025-02-04] MEDS: Lactated Ringers 1,000 ML 80 ML IV (12:45)
[2025-02-04] MEDS: Acetaminophen 500 MG TAB 1000 MG PO (12:49)
[2025-02-04] MEDS: Celecoxib 200 MG CAP 400 MG PO (12:49)
--- NOTE | 2025-02-04 13:00 | W.ANESPRE ---
General Info Date of Service Date Performed: 02/04/25 Height: 6 ft 0.75 in Weight: 70.8 kg Body Mass Index (BMI): 20.7 Surgical Procedure: Operation Date: 02/04/25 13:55 Proposed Procedure Side Surgeon p Hardware Removal of Knee Left Jj Mccallum MD Meds Allergies and Home Medications Allergies Allergy/AdvReac Type Severity Reaction Status Date / Time No Known Allergies Allergy Unverified 02/04/25 12:23 Home Medication ?Medication ?Instructions ?Recorded apixaban 2.5 mg tablet 2.5 mg PO BID #180 tabs 10/13/24 celecoxib 200 mg capsule See Rx Instructions .Route 11/27/24 .COMPLEX #180 caps Current Visit Medications: Current Medications Generic Name Dose Route Start Last Admin Trade Name Freq PRN Reason Stop Dose Admin Acetaminophen 1,000 mg 02/04/25 06:00 02/04/25 12:49 Acetaminophen 500 Mg Tab PO 02/04/25 23:59 1,000 mg PREOP KAR Administration Celecoxib 400 mg 02/04/25 06:00 02/04/25 12:49 Celecoxib 200 Mg Cap PO 02/04/25 23:59 400 mg PREOP KAR Administration Droperidol 0.625 mg 02/04/25 10:22 Droperidol 5 Mg/2 Ml Vial IVP 03/06/25 10:21 DIRECTED PRN Ephedrine Sulfate 0 mg 02/04/25 10:22 Ephedrine 25 Mg/5 Ml Syringe IVP 03/06/25 10:21 DIRECTED PRN Fentanyl 0 mcg 02/04/25 10:25 Fentanyl 100 Mcg/2 Ml Vial IVP 03/06/25 10:24 DIRECTED PRN Hydromorphone HCl 0 mg 02/04/25 10:25 Hydromorphone 2 Mg/Ml Syr IVP 03/06/25 10:24 DIRECTED PRN Ringer's Solution 1,000 mls @ 80 mls/hr 02/04/25 06:00 02/04/25 12:45 IV 02/04/25 23:59 80 mls/hr INFUSION KAR Administration Cefazolin Sodium/Dextrose 2 gm in 50 mls @ 100 mls/hr 02/04/25 06:00 Ancef Duplex IVPB 02/04/25 23:59 PREOP KAR IV Miscellaneous Supplies 1 each 02/04/25 06:00 Iv Access IV 02/04/25 23:59 DIRECTED KAR Naloxone HCl 0 mg 02/04/25 10: Naloxone 0.4 Mg/Ml Vial IVP 03/06/25 10:21 PRN PRN Sodium Chloride 0 ml 02/04/25 06:00 Normal Saline Flush 10 Ml Syr IV 02/04/25 23:59 PRN PRN Sodium Chloride 0 ml 02/04/25 06:00 Normal Saline 10 Ml Vial IJ 02/04/25 23:59 DIRECTED PRN Sterile Water 0 ml 02/04/25 06:00 Water,Injection,Sterile 10 Ml Vial IJ 02/04/25 23:59 DIRECTED PRN PFSH Active Problems Active Problems: Problem Status Onset Code Painful orthopaedic hardware Acute T84.84XA PFO (patent foramen ovale) Chronic Q21.12 Pulmonary embolism Acute ~04/2024 I26.99 Peyronie's disease Chronic N48.6 Varicose veins of lower extremity Chronic I83.90 Hyperlipidemia Chronic E78.5 Anxiety Chronic F41.9 Medical History Medical History Hx pulmonary embolism remote; post travel 10years + Recent as of 04/2024 Pyloric ulcer associated with Helicobacter pylori (02/14/11) Cholelithiasis without obstruction Surgical History Surgical History S/P ORIF (open reduction internal fixation) fracture (08/29/23) for left patellar fracture H/O left wrist surgery H/O rectal sphincterotomy History of esophagogastroduodenoscopy History of rectal sphincterotomy Status post arthroscopy of shoulder Status post rotator cuff repair Status post tonsillectomy and adenoidectomy Tobacco Smoking/Tobacco Use Status: Never Passive smoking exposure: Yes Second hand exposure: Yes Alcohol Alcohol Intake: never Substance Use Substance use: Never Substance use type: does not use Vital Signs and Lab Results Vital Signs Most Recent Vital Signs in EMR: Most Recent Vital Signs Temp Pulse Resp BP Pulse Ox 36.4 C L 62 16 121/62 99 02/04/25 12:15 02/04/25 12:15 02/04/25 12:15 02/04/25 12:15 02/04/25 12:15 Anesthesia Assessment and Plan Anesthesia History Personal History: No History of Anesthesia Complications Family History: No Family History of Anesthesia Complications Exercise Tolerance Exercise Tolerance: Metabolic Equivalents<4 (due to knee pain) Pertinent Negatives Pertinent Negatives: No Symptoms of GERD, No Major Cardiovascular Symptoms or Complaints and No Major Pulmonary Symptoms or Complaints Cardiac & Pulmonary Exam Cardiac Exam: Normal S1/S2 Heart Sounds Pulmonary Exam: Clear Bilateral Breath Sounds Implantable Cardiac Device Does patient have a Pacemaker or an ICD?: No Airway Exam Known Difficult Airway: No Mallampati Class: 3 Mouth Opening: Normal (> 3cm) Thyromental Distance: Less than 3 cm Neck Range of Motion: Full ROM Neck Circumference: Normal Teeth Condition: Normal Dentition (removeable bridge at home) ASA Classification ASA Score: ASA 2 Emergency Case?: No NPO Status NPO Status: NPO Clears >2 hours, Solids >8 hours Anesthesia Plan Resuscitation Status: Full Code Anesthesia Technique: General Anesthesia Airway Planned: Natural Airway Monitors Used: Standard Monitors Preoperative Comments:: LMA back up
[2025-02-04 13:02] VITALS: BMI 20.7
--- NOTE | 2025-02-04 13:39 | W.PREOPHP ---
Assessment and Plan Assessment and plan (1) Painful orthopaedic hardware: Status: Acute Assessment and plan: Chris is a 79-year-old male who is active and suffered a patella fracture, status post ORIF. He has prominent hardware which is painful and therefore I recommended removal. CT scan showed 2 screws being prominent. We will try to remove as much hardware as possible but really focusing on the 2 screws which are prominent in the articular space. I reviewed the surgical details with Chris and his . I discussed the risk to include bleeding, infection, pain, stiffness, damage to nerves and vessels, damage to muscles and tendons. Despite these risk, he elects to proceed. History of Present Illness History of Present Illness Chief Complaint: Painful Right Knee Hardware Narrative: Chris is a 79-year-old male who suffered a comminuted fracture of the right patella. This was fixed with multiple screws and a plate. Unfortunately he has had some worsening pain about the right knee. CT scan showed 2 screws to be prominent and therefore I recommend hardware removal. I also discussed his ongoing pain and whether we should consider any intra-articular intervention at this time but we will defer until after the hardware is removed. He denies any other changes to his medical history. He did have a history of pulmonary embolism but had no other sequela. Review of Systems All systems reviewed & are unremarkable except as noted in HPI and below PFSH All Active Problems Painful orthopaedic hardware (Acute) PFO (patent foramen ovale) (Chronic) Pulmonary embolism (Acute ~04/2024) Prior episode around 2014 Peyronie's disease (Chronic) Varicose veins of lower extremity (Chronic) Hyperlipidemia (Chronic) Anxiety (Chronic) Medical History Hx pulmonary embolism remote; post travel 10years + Recent as of 04/2024 Pyloric ulcer associated with Helicobacter pylori (02/14/11) Cholelithiasis without obstruction Surgical History S/P ORIF (open reduction internal fixation) fracture (08/29/23) for left patellar fracture H/O left wrist surgery H/O rectal sphincterotomy History of esophagogastroduodenoscopy History of rectal sphincterotomy Status post arthroscopy of shoulder Status post rotator cuff repair Status post tonsillectomy and adenoidectomy Family History Mother Ovarian cancer Depression Heart disease Hypertension Stroke Father Heart disease Stroke Sister No problems noted. Maternal Grandfather Heart disease Social History Smoking/Tobacco Use Status: Never Second Hand Exposure: Yes Smoking risk assessment performed?: Yes Alcohol Intake: never Drug use: Never Substance use type: does not use Adopted: No Caregiver/Support person: No Foster care: No Household members: spouse Housing: house Number of Children: 1 number of grandchildren: 2 Communication Needs: None Education Level: college Details: BS nursing Do you need help understanding health information?: Never current occupation: retired home health nurse Pets and animals: No Sexually active: No Do you think of yourself as: straight/heterosexual Current gender identity: male What is your relationship status?: How often do you talk on the phone with friends or family?: decline to answer How often do you get together with friends or relatives?: decline to answer How often do you attend roman catholic or yarsani services?: decline to answer Do you belong to any clubs or organized social groups?: no Panel score (0-1 are the most socially isolated patients): 1 What type of physical activity do you participate in: walking and other Details: rec fit Duration: > 90 minutes/day Frequency: daily Bebe/Scientologist: None Special bebe needs: No Agree to transfusion: Yes Seatbelt use: always Helmet use: Yes Helmet use: always Drive intox or ride w/intox trailer driver: No Working smoke detector in home: Yes Carbon monox detector in home: Yes Firearms in home: No Do you feel safe at home: Yes Do you feel safe in your relationship?: Yes Victim of physical abuse: No Victim of emotional abuse: No Victim of sexual abuse: No Would you like helpful sources: No Meds Allergies and Home Medications Allergies Allergy/AdvReac Type Severity Reaction Status Date / Time No Known Allergies Allergy Unverified 02/04/25 12:23 Home Medications ?Medication ?Instructions ?Recorded ?Confirmed ?Type apixaban 2.5 mg tablet 2.5 mg PO BID #180 tabs 10/13/24 02/04/25 Rx celecoxib 200 mg capsule See Rx Instructions .Route 11/27/24 02/04/25 Rx .COMPLEX #180 caps Exam Const General: cooperative, healthy appearing, comfortable and no acute distress Nutritional Appearance: average body habitus and well nourished Resp Effort & Inspection: normal respiratory effort Auscultation: clear to auscultation bilaterally Cardio Rate: regular rate Rhythm: regular rhythm Results Last Vital Signs Temp 36.4 C L 02/04/25 12:15 Pulse 62 02/04/25 12:15 Resp 16 02/04/25 12:15 BP 121/62 02/04/25 12:15 Pulse Ox 99 02/04/25 12:15
--- NOTE | 2025-02-04 13:47 | W.PM.DSUDISC ---
Date of service: 02/04/25 Discharge Plan Disposition Patient Disposition: Home Condition: Good Discharge Details Reason For Visit: Hardware Removal Attending Provider: Jj Mccallum Primary Care Provider: Clarisa Russell Home Meds and New Rx's Prescriptions: New acetaminophen 500 mg tablet 500 mg PO TID Qty: 90 0RF hydrocodone-acetaminophen 5-325 mg tablet 1 tab PO Q6H PRN (Reason: pain) Qty: 12 0RF Continued apixaban 2.5 mg tablet 2.5 mg PO BID Qty: 180 3RF celecoxib 200 mg capsule See Rx Instructions .ROUTE .COMPLEX Qty: 180 0RF Dose Instruction: TAKE 1 CAPSULE BY MOUTH TWICE DAILY NEEDED FOR PAIN Rx Instructions: TAKE 1 CAPSULE BY MOUTH TWICE DAILY NEEDED FOR PAIN Discharge Instructions Additional Instructions: Knee Hardware Removal Discharge Instructions Activity: You may move and walk as tolerated but always use two crutches until follow-up. You have should avoid loaded flexion of the knee. You will find some stiffness and weakness. Dressing: Keep the surgical dressing in place for at least one week. After the first week it may be removed and replace with light gauze and tape or nothing. It may get wet after 3 days but avoid soaking the dressing. If it gets wet, just lightly pat dry. Medications: - You should take Tylenol and your anti-inflammatory Celebrex as your primary pain control medications - You have been prescribed a stronger pain medication Hydrocodone for breakthrough pain, take as needed as prescribed. - If you have constipation you should take Colace or Miralax (both [id number]). It takes most people 3-4 days to have a bowel movement. Follow-up: 2 weeks Stand Alone Forms: Anesthesia Discharge Inst., Crutch Training Instructions, Herb Murray ([facility]) Referrals: Jj Mccallum MD [ [facility] STAFF PHYSICIAN, Orthopaedic Surgical] - 02/16/25 10:00 am Equipment/Supplies: Partial Weight Bearing Crutches Activity:: Activity as Tolerated Shower/Bathe:: 72 hours Diet:: As Tolerated Discharge Orders Discharge Orders: Discharge Order (Routine); Ordered 02/04/25 Ordered By: William Hemphill DS: Diagnosis Discharge Diagnosis (1) Painful orthopaedic hardware: Status: Acute
[2025-02-04] MEDS: ceFAZolin 2 GM/50 ML BAG IVPB (13:49)
[2025-02-04] MEDS: Bupivacaine 0.25% Pres-Free W/EPI 30 ML VIAL (14:09)
--- NOTE | 2025-02-04 14:48 | DI.RAD_ITS ---
Exam(s) XR KNEE LT 1V EXAM: XR KNEE LT 1V CLINICAL HISTORY: PAINFUL HARDWARE LEFT KNEE. TECHNIQUE: 2D and realtime digital imaging was performed. COMPARISON: CR XR KNEE LT 4V AP,LAT,YESICA,PAT from 02/07/2024 FINDINGS: Hard copy images show removal of some of the previously noted hardware in the patella. Three screws remain present. Please see procedure note for details. Fluoro time: 10.6seconds RADIATION DOSE DELIVERED: mary carmen Quesada=0.27 mGy
--- NOTE | 2025-02-04 15:01 | W.PM.OP ---
Operative Note Operative Note PRE-OP DIAGNOSIS: Painful hardware, left patella PROCEDURE: Painful hardware, left patella SURGEON: Jj Mccallum TIME CLOCK REPAIRER: William Hemphill ANESTHESIA TYPE: General:No Airway Refer to Anesthesia Record ESTIMATED BLOOD LOSS: 20 TOURNIQUET TIME: 0 COMPLICATIONS: None Indications: Chris is a 79-year-old who underwent open reduction internal fixation of a comminuted left patella fracture. Unfortunately has been having some increasing pain about the left knee and 2 screws seem to be prominent within the joint. Therefore, I recommend proceeding with hardware removal. I reviewed the technical details of the procedure. I discussed the risk to include bleeding, infection, pain, stiffness, damage to nerves and vessels, damage to muscle and tendons. Despite these risk, he elects to proceed. Procedure Description: Chris was greeted in the preoperative holding area where the correct side was identified and marked. The consent was reviewed with the patient and signed. The history and physical was updated. All questions were answered. Preoperative mediacations were administered: Acetaminophen 1000mg, Celebrex 400mg, and Gabapentin 300mg. He was sent to the operating room. Prophylactic antibiotics in form cefazolin were administered. All bony problems well-padded and the left leg was placed onto a bone foam ramp. The left leg was and prepped ChloraPrep and draped in a standard fashion. A timeout is performed for safe surgery. Previous incision was then anesthetized with 0.25% bupivacaine with epinephrine. I then opened up about two thirds of the previous incision. This is taken down sharply through the skin and soft tissue in all the way down to the dorsum of the plate. I then elevated full-thickness flaps over the plate for later closure. These were taken inside full exposure of the patellar plate. I then remove the screws from within the plate. The most proximal into the distal screws required a small split into the adjacent tendon. Screws were removed out difficulty and then the plate was also removed. After the plate was removed there was no signs of fracture nonunion. The patella was without sign of refracture. Remnant FiberWire suture was removed. Some soft tissue for underneath the plate was debrided. The patella periosteum was injected with a another 10 cc of 0.25% bupivacaine. Final x-rays were obtained showing all screws from the plate and the plate itself were removed. The wound was then thoroughly irrigated. I then used a #1 Vicryl to repair the split within the patellar ligament. I also used #1 Vicryl to close the extensor tissue from the dorsum of the patella in interrupted fashion. The deep tissues were then closed with a 2-0 Vicryl. This was followed by a running 3-0 Monocryl in a subcuticular fashion. This was reinforced with skin glue. A Mepilex silver dressing was applied along with a [id number] JUNITO wrap. A CryoCuff was applied. Chris was transferred to the hospital stretcher without difficulty and suffering no apparent complication. Chris will resume his anticoagulation later tonight. He should ambulate for the next 2 weeks with crutches for support. He is weightbearing as tolerated. We should avoid any loaded flexion or flexion past 90 degrees for the first 2 weeks to allow the patella to adjust to the place and screws being removed. Date of Procedure: 02/04/25
[2025-02-04 15:09] VITALS: BP 88/51; PULSE 59; RESP 15; TEMP 36.3; O2SAT 94
--- NOTE | 2025-02-04 15:32 | W.ANESPOSTOP ---
Postoperative Evaluation Date, Time and Location Date Performed: 02/04/25 Time Performed: 15:33 Patient Location: Day Surgery Unit Vital Signs Most Recent Imported Vital Signs: Most Recent Vital Signs Temp Pulse Resp BP Pulse Ox 36.3 C L 59 L 15 88/51 L 94 02/04/25 15:09 02/04/25 15:09 02/04/25 15:09 02/04/25 15:09 02/04/25 15:09 Pain Score Most Recent Pain Score: Most Recent Pain Score Pain Level 0 02/04/25 15:09 Assessment Mental Status: Awake (Alert & Oriented to Patient Baseline) Airway and Respiratory Function: Patent airway with normal (patient baseline) respiratory exam Cardiovascular Function: Hemodynamically Stable Hydration Status: Adequately Hydrated Nausea & Vomiting: No Nausea or Vomiting Pain: Pt. Denies Any Pain Peripheral Nerve Block: Patient did not receive a nerve block
[2025-02-04 15:50] VITALS: BP 94/53; PULSE 59; RESP 14; TEMP 36.1; O2SAT 99
[2025-02-04 16:27] VITALS: BP 108/53; PULSE 58; RESP 14; TEMP 36.1; O2SAT 100
== END 2025-02-04 16:45 | disposition home or self-care (01) ==
PROVIDERS: PCP Nurse Practitioner Family; Visit Provider Student in an Organized Health Care Education/Training Program
PROC: (CPT 20680; principal; 2025-02-04 13:45)
DX: T84.84XA Pain due to internal orthopedic prosthetic devices, implants and grafts, initial encounter (principal); Q21.12 Patent foramen ovale; E78.5 Hyperlipidemia, unspecified; Z86.711 Personal history of pulmonary embolism
CPT/HCPCS: 20680; 73560; J0690; J1100; J2003; J2250; J2405; J2704

== ENCOUNTER → 2025-02-16 09:53 | Outpatient (BNVA) | payer MEDICARE, SELFPAY | PROVIDERS: Referring Provider Nurse Practitioner Family; Visit Provider Physician Assistant | DX: Z47.89 Encounter for other orthopedic aftercare (principal); T84.84XD Pain due to internal orthopedic prosthetic devices, implants and grafts, subsequent encounter | CPT/HCPCS: 99024 ==

== ENCOUNTER → 2025-03-16 09:43 | Outpatient (BNVA) | payer MEDICARE, SELFPAY | PROVIDERS: Referring Provider Nurse Practitioner Family; Visit Provider Student in an Organized Health Care Education/Training Program | DX: T84.84XD Pain due to internal orthopedic prosthetic devices, implants and grafts, subsequent encounter (principal) | CPT/HCPCS: 99024 ==